=== PATIENT | male | born 1965 | race Hispanic/Latino ===

== ENCOUNTER → 2023-10-21 08:50 | Outpatient (REF) | payer BC, SELFPAY | LOC: HWRAD 08:50 | PROVIDERS: ATTENDING PHYSICIAN Internal Medicine Gastroenterology; FAMILY PHYSICIAN Family Medicine | DX: R93.3 Abnormal findings on diagnostic imaging of other parts of digestive tract (principal); R10.13 Epigastric pain; K76.0 Fatty (change of) liver, not elsewhere classified | CPT/HCPCS: 74177; Q9967 ==

== ENCOUNTER → 2024-05-11 06:24 | Day surgery (SDC) | payer BC, SELFPAY | LOC: GI 06:24 | PROVIDERS: ATTENDING PHYSICIAN Internal Medicine Gastroenterology; FAMILY PHYSICIAN Family Medicine | DX: K44.9 Diaphragmatic hernia without obstruction or gangrene (principal); K22.70 Barrett's esophagus without dysplasia; R10.13 Epigastric pain | CPT/HCPCS: 43239; 88305; 88342 ==

== ENCOUNTER 2024-07-21 22:00 | Emergency (ER) | payer BC, SELFPAY ==
[2024-07-21 22:00] VITALS: BMI 32.6
[2024-07-21 22:03] VITALS: BP 146/96
[2024-07-22] VITALS: BP 115/75
[2024-07-22 00:29] LABS: Urine Albumin 1+ (Neg - Trace); Urine Bilirubin Negative (Negative); Urine Character Clear (Clear); Urine Color Amber; Urine Glucose Negative (Negative); Urine Ketone Negative (Negative); Urine Leukocyte Negative (Negative); Urine Nitrite Negative (Negative); Urine Occult Blood 1+ (Negative); Urine Urobilinogen 2+ (Neg - 1+); Urine pH 6.5 (5.0-9.0)
[2024-07-22 00:52] LABS: Urine Amorphous Seen; Urine Bacteria Moderate (Negative); Urine Granular Cast 0-2 /LPF (0)
[2024-07-22 00:53] LABS: Urine Red Blood Cell 40-50 /HPF (0-2); Urine White Cell 26-30 /HPF (0-5)
[2024-07-22 00:54] LABS: Urine Squamous Cell 26-30 /LPF (Few)
--- NOTE | 2024-07-22 01:00 | ED.GENMED ---
History of Present Illness
General
Chief Complaint: Male Genito-Urinary Symptoms
Source: patient and spouse
Exam Limitations: none
Time Seen by Provider: 07/21/24 23:22
History of Present Illness
History of Present Illness:
58-year-old male who presents with inability to urinate. He states he for started having issues recently on a plane at the end of last week and had chills. [place] but they did not do much other than give him some pain
control. Patient was then seen by his primary care doctor and had a urine study. He was given ciprofloxacin. He states that today started having difficulty urinating and has not urinated in about 7 or 8 hours. Patient denies vomiting or back
pain. No fevers. Is on Flomax. Patient spouse adds that he was unable to urinate at home
Past History
Past History
ED Past Medical History: GERD, HTN, Hypercholesterolemia and Other (Kidney stones)
ED Past Surgical History: Cholecystectomy and Tonsilectomy
Social History
Tobacco: Non-smoker
Alcohol: Occasional
Personal:
Living: with family
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
Family History
Family History: Other (Noncontributory)
Phy Exam
Physical Exam
Physical Exam:
CONSTITUTIONAL Patient alert and oriented to person, place and time. Well-appearing. Vital signs reviewed.
HEAD atraumatic, normocephalic.
EYES eyelids normal to inspection, Extraocular muscles intact, Conjunctiva normal, Sclera normal.
NECK normal range of motion, Trachea midline, no jugular venous distention.
RESPIRATORY CHEST No respiratory distress noted, Chest expansion equal,
ABDOMEN moderate to severe lower abdominal tenderness, mild distention.
BACK normal inspection, no obvious deformities
UPPER EXTREMITY range of motion normal, Motor strength normal, no cyanosis, no edema.
LOWER EXTREMITY range of motion normal, Motor strength normal, no cyanosis, no edema.
NEURO Speech normal, No focal motor deficits, Sasha coma scale 15, Memory normal, Cranial Nerves intact to screening exam.
SKIN skin warm, dry, and normal in color.
Course
Orders/Labs/Results
Orders:
Orders
07/21/24 23:41
Lidocaine 2% [Lidocaine Uro-Jet 2%] 1 syringe .ROUTE .STK-MED ONE
07/21/24 23:44
Guerin Placement- Treatment ONCE
Reason for insertion: Acute Retention
Urinalysis Reflex To Culture Urgent
Date Specimen was Collected: 07/21/24
Time Specimen was Collected: 23:59
07/22/24 00:02
Urine Microscopic Reflex Cult Urgent
Urine Culture Urgent
DIANA Source: U
Specimen Description:
Date Specimen was Collected: 07/21/24
Time Specimen was Collected: 23:59
Abnormal Lab Results
07/22/24
00:02
Ur Occult Blood Reflex 1+ A
(Negative)
Urine Urobilinogen 2+ A
(Neg - 1+)
Urine RBC 40-50 A /HPF
(0-2)
Urine WBC (Reflex) 26-30 A /HPF
(0-5)
Urine Bacteria (Reflex) Moderate A
(Negative)
Urine Albumin (Reflex) 1+ A
(Neg - Trace)
Vital Signs
Initial and Last Documented VS:
Initial Vital Signs
Temp Pulse Resp BP Pulse Ox
98.2 F 82 20 146/96 99
07/21/24 22:03 07/21/24 22:03 07/21/24 22:03 07/21/24 22:03 07/21/24 22:03
Last Documented Vital Signs
Temp Pulse Resp BP Pulse Ox
98.2 F 72 18 115/75 97
07/21/24 22:03 07/22/24 00:00 07/22/24 00:00 07/22/24 00:00 07/22/24 00:00
MDM/Problems Addressed
MDM/Problems Addressed:
Acute urinary retention, acute prostatitis
*Pulse Oximetry
Patient hypoxic: no
*Critical Care Note
Total Time (30-74mins, 75-104mins- exclusive of procedures): Not Applicable
Data Reviewed
Source: patient
Prescriptions/Medications Considered But Not Given:
Consider changing antibiotics the patient is only had a few doses of ciprofloxacin I do think this could come for his prostate
Patient Management
Escalation/DeEscalation of care consider admission/obs:
Guerin catheter placed and patient has since put out about 1500 mL of urine. Feels much better. Continue Cipro. Recommended close outpatient follow-up with urology. Continue Flomax
ED Attending Note
-
Portions of this chart may have been created with voice recognition software.� Occasional wrong word or��sound alike� substitutions may have occurred due to the inherent limitations of voice recognition software.
Discharge Plan
Departure
Patient Disposition: Home (Routine Discharge)
Date of Disposition: 07/22/24
Time of Disposition: 01:00
Patient with high blood pressure during this ER visit?: No
Discharge Problem:
Acute bacterial prostatitis, Acute urinary retention
Instructions: How to Care for Your Guerin Catheter, Male, Urinary Retention (DC)
Prescriptions:
No Action
oxycodone-acetaminophen 5 MG/325 MG tablet
1 tab PO Q6HPRN PRN (Reason: pain) Qty: 12 0RF
Patient Comments:
old prescription, possibly , took one this am for pain w/out relief (noted 01/01/19)
lisinopril 10 MG tablet
10 mg PO DAILY
krill oil 500 MG capsule
500 mg PO DAILY
magnesium oxide 400 MG tablet
400 mg PO DAILY
Nexium
1 tab PO DAILY
tamsulosin 0.4 MG capsule
0.4 mg PO DAILY Qty: 15 0RF
Referrals:
Don Pena DO [Family Provider] -
Ankur Granger MD [Active] -
Activity Restrictions/Additional Instructions:
Please continue your antibiotics and flomax. You may need a longer course including up to 3 weeks of antibiotics. Please see urology in the next 2 days for follow-up and reevaluation. Return immediately for abdominal pain, vomiting, changes in
mentation, weakness of any kind or any other concerns peer
Interventions
Interventions:
*General Assessment Last Done: 07/21/24 22:03
*ED COVID-19 Vaccine History Last Done: 07/21/24 22:03
*Nursing Disposition Last Done: 07/22/24 01:52
ED-Male Genitourinary Assessment Last Done: 07/22/24 00:10
Discharge Date and Time
Discharge Date/Time: 07/22/24 01:53
Print Language: MALAY
== END 2024-07-22 01:53 | disposition home or self-care (01) ==
LOC: EMR 22:00
PROVIDERS: EMERGENCY PHYSICIAN Emergency Medicine; FAMILY PHYSICIAN Family Medicine
DX: N41.0 Acute prostatitis (principal); B96.89 Other specified bacterial agents as the cause of diseases classified elsewhere; K21.9 Gastro-esophageal reflux disease without esophagitis; I10 Essential (primary) hypertension; E78.00 Pure hypercholesterolemia, unspecified; Z90.49 Acquired absence of other specified parts of digestive tract; Z87.442 Personal history of urinary calculi
CPT/HCPCS: 51702; 99283; 81003; 81015; 87086

== ENCOUNTER 2024-07-23 18:30 | Emergency (ER) | payer BC, SELFPAY ==
[2024-07-23 18:32] VITALS: BP 145/101
--- NOTE | 2024-07-23 21:48 | ED.GENMED ---
History of Present Illness
General
Chief Complaint: Urinary Symptoms
Source: patient and spouse (Spouse states that he has been taken azo)
Time Seen by Provider: 07/23/24 19:52
History of Present Illness
History of Present Illness:
58-year-old male who presents with irritation at the tip of his penis. He actually states right now my exam he feels much better because he took ibuprofen Tylenol prior to arrival. However, earlier today it was much more painful. Patient states
that he had a bowel movement had to strain. He states after that he noticed the pain. In addition, he called the urologist. They advised him to adjust the position of the leg bag. He states that seem better for a little bit. Patient does admit
that he was able to have a normal bowel movement later.
Past History
Past History
ED Past Medical History: GERD, HTN, Hypercholesterolemia and Other (Kidney stones)
ED Past Surgical History: Cholecystectomy and Tonsilectomy
Social History
Tobacco: Non-smoker
Alcohol: Occasional
Personal:
Living: with family
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
Family History
Family History: Other (Noncontributory)
Phy Exam
Physical Exam
Physical Exam:
CONSTITUTIONAL Vital signs reviewed, Patient alert and oriented to person, place and time. Well-appearing
HEAD atraumatic, normocephalic.
EYES eyelids normal to inspection, Extraocular muscles intact, Conjunctiva normal, Sclera normal.
NECK normal range of motion, Trachea midline, no jugular venous distention.
RESP no respiratory distress
BACK No obvious deformities
16 Tel[address] Guerin catheter in place with normal yellow urine. No bleeding noted. No drainage around the tube.
UPPER EXTREMITY Gross Range of motion normal, gross motor strength normal
LOWER EXTREMITY Gross range of motion normal, Gross motor strength normal
NEURO Speech normal, No focal motor deficits include, Cheswick coma scale 15, Memory normal, Cranial Nerves intact to screening exam.
SKIN Skin warm, dry, and normal in color.
PSYCHIATRIC Patient oriented to person place and time, Normal affect.
Course
Vital Signs
Initial and Last Documented VS:
Initial Vital Signs
Temp Pulse Resp BP Pulse Ox
98.2 F 75 16 145/101 98
07/23/24 18:32 07/23/24 18:32 07/23/24 18:32 07/23/24 18:32 07/23/24 18:32
Last Documented Vital Signs
Temp Pulse Resp BP Pulse Ox
98.2 F 75 16 145/101 98
07/23/24 18:32 07/23/24 18:32 07/23/24 18:32 07/23/24 18:32 07/23/24 18:32
MDM/Problems Addressed
Differential Diagnosis Includes:
Urethritis, infection, bleeding, injury
MDM/Problems Addressed:
Penile irritation from Guerin catheter
*Pulse Oximetry
Patient hypoxic: no
*Critical Care Note
Total Time (30-74mins, 75-104mins- exclusive of procedures): Not Applicable
Data Reviewed
Source: patient
Further Testing Considered But Not Given:
Considered exchanging tube but do not suspect that that will solve this problem
Patient Management
Escalation/DeEscalation of care consider admission/obs:
Patient reports symptoms actually have abated. He feels okay at this time. Will add something for pain control as needed but also lidocaine jelly as needed. Sees urology on Friday
ED Attending Note
-
Portions of this chart may have been created with voice recognition software.� Occasional wrong word or��sound alike� substitutions may have occurred due to the inherent limitations of voice recognition software.
Discharge Plan
Departure
Patient Disposition: Home (Routine Discharge)
Date of Disposition: 07/23/24
Time of Disposition: 21:48
Patient with high blood pressure during this ER visit?: Yes
Discharge Problem:
Irritation of penis
Instructions: How to Care for Your Guerin Catheter, Male, BLOOD PRESSURE
Prescriptions:
New
hydrocodone-acetaminophen 5-325 mg tablet
1 tab PO Q6H PRN (Reason: Pain) Qty: 12 0RF
No Action
oxycodone-acetaminophen 5 MG/325 MG tablet
1 tab PO Q6HPRN PRN (Reason: pain) Qty: 12 0RF
Patient Comments:
old prescription, possibly , took one this am for pain w/out relief (noted 01/01/19)
lisinopril 10 MG tablet
10 mg PO DAILY
krill oil 500 MG capsule
500 mg PO DAILY
magnesium oxide 400 MG tablet
400 mg PO DAILY
Nexium
1 tab PO DAILY
tamsulosin 0.4 MG capsule
0.4 mg PO DAILY Qty: 15 0RF
Referrals:
Don Pena DO [Family Provider] -
Activity Restrictions/Additional Instructions:
Please see urology as planned on Friday. Use viscous lidocaine as needed for irritation. Return immediately for fevers, blood in urine, worsening pain, abdominal pain or any other concerns. Please also keep your stools soft as discussed.
Interventions
Interventions:
*Risk Screen - Suicide Last Done: 07/23/24 18:35
*Neglect/Abuse Screening Last Done: 07/23/24 18:35
Discharge Date and Time
Print Language: TUNISIAN
[2024-07-23] MEDS: LIDOCAINE URO-JET 2% 1 SYRINGE TOPICAL (22:00)
[2024-07-23 22:03] VITALS: BP 129/89
== END 2024-07-23 22:07 | disposition home or self-care (01) ==
LOC: EMR 18:30
PROVIDERS: EMERGENCY PHYSICIAN Emergency Medicine; FAMILY PHYSICIAN Family Medicine
DX: N48.89 Other specified disorders of penis (principal); I10 Essential (primary) hypertension
CPT/HCPCS: 99283

== ENCOUNTER → 2024-11-08 11:25 | Outpatient (REF) | payer BC, SELFPAY | LOC: RAD 11:25 | PROVIDERS: ATTENDING PHYSICIAN Specialist; FAMILY PHYSICIAN Family Medicine | DX: N39.0 Urinary tract infection, site not specified (principal) | CPT/HCPCS: 74178; Q9967 ==

== ENCOUNTER 2025-02-01 06:37 | Day surgery (SDC) | payer BC, SELFPAY ==
[2025-01-21 09:07] LABS: Hematocrit 43.7 % (39.0-52.0); Hemoglobin 15.5 g/dL (13.0-18.0); Mean Corp Hgb Conc. 35.5 g/dL (33.0-37.0); Mean Corpuscular Volume 86.9 fL (80.0-94.0); Platelet Count 179 10^3/uL (130-400); Red Cell Dist. Width 12.3 % (11.5-14.5)
[2025-01-21 09:50] LABS: Blood Urea Nitrogen 20 mg/dl (9-20); Calcium 9.4 mg/dl (8.4-10.2); Carbon Dioxide 25 mmol/L (22-30); Chloride 110 mmol/L (98-107); Glucose 92 mg/dl (70-99); Potassium 4.8 mmol/L (3.5-5.1); Sodium 141 mmol/L (135-145); eGFR > 60.00
[2025-01-21 13:54] VITALS: BMI 30.4
[2025-02-01] VITALS (12 sets, daily range): BP systolic 109–150; BP diastolic 71–85; BMI 30.4
[2025-02-01] MEDS: NORMOSOL-R/PLASMALYTE-A 1000 IV (11:58)
--- NOTE | 2025-02-01 15:27 | W.SUR.POST ---
Surgical Immediate Post Op
Note
bph partial retention utisPre Op Diagnosis:
Post Op Diagnosis:
same
Procedure Performed:turp
Primary Surgeon: swathi
Secondary Surgeons:
Anesthesia: general dr arreola
Estimated Blood Loss: 30cc
Fluids: nss
Drains/Shunts: [address]
Specimens/Cultures: prostatic chips
Doppler/Duplex/Angio (Y/N):
Complications: 0
Operative Findings:
extremely lg prosyate with median lobe
[2025-02-01] MEDS: DILAUDID 0.25 MG IV ×3 (15:35→16:33)
[2025-02-01] MEDS: DETROL LA 4 MG PO (15:46)
[2025-02-01] MEDS: VALIUM INJECTION 5 MG IV (15:58)
[2025-02-01] MEDS: COLACE 100 MG PO (17:37)
[2025-02-01] MEDS: LEVAQUIN 100 IV (17:41)
--- NOTE | 2025-02-01 18:06 | PTCARENOTE ---
Pt arrived to [facility] from PACU in a bed s/p TURP with CBI running at medium flow. CBI output punch color. Admission questions answered. Levofloxacin IV started and pt started to feel itchy. IV abx stopped and Dr. Rodriguez notified.
[2025-02-01] MEDS: BENADRYL 50 MG PO (18:27)
[2025-02-01] MEDS: NON-FORMULARY ITEM 10 UNIT PO (19:47)
[2025-02-01] MEDS: NON-FORMULARY ITEM 40 MG PO (19:47)
[2025-02-01] MEDS: MELATONIN 10 MG PO (22:02)
[2025-02-01] MEDS: FLOMAX 0.4 MG PO (22:02)
[2025-02-02 03:16] VITALS: BP 112/70
[2025-02-02 06:07] LABS: Hematocrit 42.2 % (39.0-52.0); Hemoglobin 14.7 g/dL (13.0-18.0)
[2025-02-02 07:40] VITALS: BP 104/65
[2025-02-02] MEDS: NON-FORMULARY ITEM 40 MG PO ×2 (08:12→20:29)
[2025-02-02] MEDS: NON-FORMULARY ITEM 10 UNIT PO ×2 (08:13→17:56)
[2025-02-02] MEDS: VISBIOME 1 CAP PO (08:13)
[2025-02-02] MEDS: ZESTRIL 10 MG PO (08:13)
[2025-02-02] MEDS: PROSCAR 5 MG PO (08:13)
[2025-02-02] MEDS: COLACE 100 MG PO ×3 (08:13→16:13)
[2025-02-02] MEDS: ZINC 50 MG PO (08:13)
--- NOTE | 2025-02-02 09:11 | W.PN.URO.CBU ---
Today's Communication / Plan
-
d/c cbi encourage fluids
Assessment / Plan
-
doing well will hold cbi voiding trial tomorrow
Diagnosis
-
Date of Service: February 02, 2025
-
bph retention utis
Post Op Day:
Subjective
-
mild discomfort
Objective
-
Vital Signs
Temp Pulse Resp BP Pulse Ox
98.5 F 64 16 104/65 99
02/02/25 07:40 02/02/25 07:40 02/02/25 07:40 02/02/25 07:40 02/02/25 07:40
Intake and Output
02/01/25 02/02/25 02/03/25
06:59 06:59 06:59
Intake Total 125 / 125 480 / 480
Output Total 2224 / 2224
Balance -2100 / -2100 480 / 480
Intake:
Oral fluids 480 / 480
IV fluids (Total) 125 / 125
normosol 125 / 125
Output:
True Urine Output from CBI 2224
Laboratory Results
02/02/25 05:13
01/21/25 08:37
Review of Systems
-
: Difficulty Voiding
Physical Exam
-
General - well developed, well nourished, no acute distress
Chest - clear bilaterally
Abdomen - soft, non-tender, positive bowel sounds, no CVAT, no incisional pain or distention
Genitalia - normal
Rectal - normal
Skin - warm & dry with no rash
Neuro - AOx3, no motor deficits
Extremities - no clubbing, no cyanosis, no edema
Incision - clean, dry
Dressing - clean, dry, intact
Care Review
Data Reviewed
Discussed with: Nursing
--- NOTE | 2025-02-02 10:28 | CM ---
Reviewed the chart notes and spoke with the patient at the bedside. Patient s/p TURP with CBI. The patient resides with his spouse in a three story home with two steps to enter. The patient reports no DME/VN/SNF in the past. The patient
confirmed his pharmacy of choice is [facility]. CM continues to be available to patient/family and is monitoring medical plan for needs at discharge.
Plan: If patient discharged with Guerin may benefit from VN otherwise no needs.
[2025-02-02 11:40] VITALS: BP 99/58
[2025-02-02 15:25] VITALS: BP 94/59
[2025-02-02 16:43] VITALS: BP 99/64
[2025-02-02] MEDS: MELATONIN 10 MG PO (22:29)
[2025-02-02] MEDS: FLOMAX 0.4 MG PO (22:29)
[2025-02-02 23:25] VITALS: BP 116/63
[2025-02-03] MEDS: TYLENOL 650 MG PO (02:03)
[2025-02-03] MEDS: PERCOCET 5/325 2 TABLET PO ×2 (04:52→10:55)
[2025-02-03 07:35] VITALS: BP 95/64
[2025-02-03] MEDS: NON-FORMULARY ITEM 40 MG PO (09:07)
[2025-02-03] MEDS: VISBIOME 1 CAP PO (09:07)
[2025-02-03] MEDS: ZINC 50 MG PO (09:07)
[2025-02-03] MEDS: PROSCAR 5 MG PO (09:07)
[2025-02-03] MEDS: NON-FORMULARY ITEM 10 UNIT PO (09:08)
[2025-02-03] MEDS: COLACE 100 MG PO (09:08)
[2025-02-03] MEDS: ZESTRIL PO (09:11)
--- NOTE | 2025-02-03 09:29 | CM ---
CM reviewed medical records. Patient will be medically ready for discharge pending voiding trial.
PLAN: Home no needs.
[2025-02-03 10:45] VITALS: BP 101/68
[2025-02-03] MEDS: COLACE PO (10:55)
== END 2025-02-03 11:11 | disposition home or self-care (01) ==
LOC: SDS 06:37
PROVIDERS: ATTENDING PHYSICIAN Specialist; FAMILY PHYSICIAN Family Medicine
DX: N40.1 Benign prostatic hyperplasia with lower urinary tract symptoms (principal); N41.9 Inflammatory disease of prostate, unspecified; R33.8 Other retention of urine; Z87.440 Personal history of urinary (tract) infections
CPT/HCPCS: 52601; 36415; 80048; 85014; 85018; 85027; 87086; 88305; 88341; 88342; 93005